=== PATIENT | female | born 1975 | race Caucasian/White ===

== ENCOUNTER → 2017-04-07 | Day surgery (SDC) | payer OTHER ==
[2017-04-07] VITALS (8 sets, daily range): BP systolic 108–115; BP diastolic 65–79; PULSE 71–97; RESP 14–18; TEMP 97.1–98.8; O2SAT 98–100
[~2017-04-07] VITALS: Ht 175.3 cm; Wt 64.4 kg
[~2017-04-07] MED LIST: ACETAMINOPHEN 1 GM/100 ML IV SCH; ALPR0.5T3 PO; BUPIVACAINE/EPINEPHRINE 0.5% 50 ML VIAL ONE; CHLORHEXIDINE GLUCONATE 2 % 1 PACK (2 CLOTHS) TOPICAL PRN; LACTATED RINGER'S 1000 ML IV PRN; LISD30 PO; METOPROLOL TARTRATE 25 MG TAB PO PRN; MIDAZOLAM HCL 2 MG/2 ML VIAL ONE; NORA0.35 PO; POVIDONE IODINE 5% (ANTISEPSIS KIT) 4 APPLICATIONS EACH NARE PRN; PROPOFOL 500 MG/50 ML INJ 50 ML ONE; SODIUM CHLORID 0.9% 500 ML IV PRN; ceFAZolin INJ 1,000 MG VIAL ONE
--- NOTE | 2017-04-07 09:42 | PD.OP ---
cc: Jaswant Wilkes MD Operative Report Date of Surgery: Apr 07, 2017 Preoperative Diagnosis: Right axillary lymphadenopathy Postoperative Diagnosis: Right axillary lymphadenopathy Procedure: Excisional biopsy right axillary lymph nodes Anesthesia: Local/MAC Surgeon: Jaswant Wilkes Qualitative Executive Researcher(s): MAYUR Sanabria Operation and Findings: Operative procedure: The patient is brought to the operating room and after satisfactory sedation by anesthesia the right axilla was prepped and draped in usual sterile fashion. 0.5% bupivacaine with epinephrine was used to infiltrate skin for local anesthesia. A transverse right infra-axillary incision was made and carried out sharply through the subcutaneous tissues tissue with the cautery being used for hemostasis. Incision was deepened to the axilla proper by incising the clavipectoral fascia. A large lymph node was easily palpable and was grasped with Allis forceps. The lymph node along with one other was dissected free using the harmonic scalpel and passed for permanent pathology. Hemostasis was strictly assured after which further local anesthesia was infiltrated into the surrounding tissues. The subcutaneous tissues tissue was closed with interrupted 3-0 Vicryl sutures and the skin closed with interrupted 4-0 PDS subcuticular stitches. Steri-Strips were applied the patient was then awakened and taken from the operating room, in satisfactory condition, having tolerated the procedure without problem. Estimated blood loss was less than 10 mL's. The instrument, sponge, needle counts were reported as being correct 2 at the end of the procedure. Jaswant Wilkes MD Apr 07, 2017 09:42
== END | disposition home or self-care (01) ==
LOC: HSDC 05:31
PROVIDERS: ATTEND Surgery
DX: R59.0 Localized enlarged lymph nodes (principal); F41.9 Anxiety disorder, unspecified; R16.0 Hepatomegaly, not elsewhere classified; C85.90 Non-Hodgkin lymphoma, unspecified, unspecified site; N83.209 Unspecified ovarian cyst, unspecified side; Z86.2 Personal history of diseases of the blood and blood-forming organs and certain disorders involving the immune mechanism
CPT/HCPCS: 01610; 36430; 38525; 86900; 86901; 88305; 88341; 88342; J0131; J2250; J2790; J3010; J7120; P9035; 90384; J0690

== ENCOUNTER → 2017-04-28 | Day surgery (SDC) | payer OTHER ==
[~2017-04-28] VITALS: Ht 175.3 cm; Wt 66.0 kg
[~2017-04-28] MED LIST changes: -ACETAMINOPHEN 1 GM/100 ML IV SCH; +ACETAMINOPHEN 1000 MG/100 ML 100 ML IV SCH; -BUPIVACAINE/EPINEPHRINE 0.5% 50 ML VIAL ONE; +BUPIVACAINE/EPINEPHRINE 0.5% PF 30 ML VIAL ONE; +HEPARIN SODIUM - IV 10,000 UNITS/10 ML VIAL ONE; +PHENYLEPH/NS 1000 MCG/10 ML SYR IV ONE; -PROPOFOL 500 MG/50 ML INJ 50 ML ONE; +SODIUM CHLORIDE 0.9% 20 ML VIAL ONE; +ceFAZolin 2 GM PREMIX 50 ML IV SCH; -ceFAZolin INJ 1,000 MG VIAL ONE
[2017-04-28 13:59] VITALS: BP 126/71; PULSE 78; RESP 18; TEMP 97.8; O2SAT 100
--- NOTE | 2017-04-28 18:03 | RADRPT ---
EXAM DATE/TIME: 04/28/2017 12:39 [facility] COMPARISON: No previous studies available for comparison. INDICATIONS : Left side infusaport placement FLUORO TIME: .11 minutes IMAGE COUNT: 1 MEDICAL HISTORY : FOLLICULAR LYMPHOMA SURGICAL HISTORY : Biopsy axillary lymph glands ENCOUNTER: Initial ACUITY: 1 day PAIN SCORE: Non-responsive. LOCATION: Left chest FINDINGS: A left-sided Glxugb-x-Dtnk has been placed. On this single view the Ravtui-i-Mubm appears to be in go od position. No definite pneumothorax is seen on this single view. CONCLUSION: There appears to be good position of the left-sided Ltwpmy-o-Gnub. Cruz Contreras MD on April 28, 2017 at 18:00 Board Certified Radiologist. This report was verified electronically.
== END | disposition home or self-care (01) ==
LOC: HSDC 08:52
PROVIDERS: ATTEND Surgery
DX: C85.90 Non-Hodgkin lymphoma, unspecified, unspecified site (principal); R16.0 Hepatomegaly, not elsewhere classified; R16.1 Splenomegaly, not elsewhere classified; N83.209 Unspecified ovarian cyst, unspecified side; F41.9 Anxiety disorder, unspecified
CPT/HCPCS: 00532; 36561; 85049; C1788; J0131; J1644; J2250; J2370; J3010; J7120